=== PATIENT | female | born 1950 | race Caucasian/White ===

== ENCOUNTER → 2016-10-04 | Outpatient (CLI) | payer OTHER ==
--- NOTE | 2016-10-04 11:19 | MA ---
Screening Digital Mammogram With iCAD Analysis Clinical Indications: Routine screening. Maternal grandmother, a sister and multiple first cousins marie ve been diagnosed with breast cancer in their 40s and 50s. The patient has had ovarian cancer and is BRCA1 and 2 negative. Technique: Standard cephalocaudal and mediolateral oblique projections are obtained. The examination is processed by the iCAD computer-aided detection system. Comparison: June 2015, June 2014, June 2013, March 2012, December 2010, November 2009, October 9. Breast density: Type C; Heterogeneously dense. Findings: CAD was reviewed. There are no masses, suspicious calcifications or other signs of malignan cy. There has been no significant change in the appearance of either breast. Impression: Negative mammogram. BI-RADS 1. Recommendation: Routine screening in one year, as long as physical examination is benign, in this pat ient with heterogeneously dense breast parenchyma. Notation: Given the patient's breast density as well as family history, consideration could be given to tomosynthesis technique for next mammographic screening study. Count Includes [facility] will send a result letter to the patient. Dense breast parenchyma diminishes mammographic sensitivity. Negative mammography should not preclude additional workup of a clinically suspicious finding. The patient's information is entered into a reminder system with a target due date for her next mammo gram.
== END ==
LOC: BMCIMAGING 10:02
DX: Z12.31 Encounter for screening mammogram for malignant neoplasm of breast (principal); Z80.3 Family history of malignant neoplasm of breast; Z85.43 Personal history of malignant neoplasm of ovary
CPT/HCPCS: G0202

== ENCOUNTER → 2017-10-06 | Outpatient (CLI) | payer OTHER | LOC: BMCIMAGING 12:46 | PROVIDERS: ATTEND Internal Medicine | DX: Z12.31 Encounter for screening mammogram for malignant neoplasm of breast (principal); Z80.3 Family history of malignant neoplasm of breast; Z85.43 Personal history of malignant neoplasm of ovary ==

== ENCOUNTER → 2017-10-27 | Outpatient (CLI) | payer OTHER | LOC: BMCIMAGING 11:14 | PROVIDERS: ATTEND Internal Medicine | DX: Z13.820 Encounter for screening for osteoporosis (principal) ==

== ENCOUNTER → 2018-02-02 | Outpatient (CLI) | payer OTHER | LOC: BMCIMAGING 12:52 | PROVIDERS: ATTEND Urology | DX: R39.15 Urgency of urination (principal); R35.0 Frequency of micturition; R32 Unspecified urinary incontinence ==

== ENCOUNTER → 2018-03-26 | Outpatient (CLI) | payer OTHER | LOC: BMCIMAGING 16:13 | PROVIDERS: ATTEND Internal Medicine | DX: M47.26 Other spondylosis with radiculopathy, lumbar region (principal); Z87.828 Personal history of other (healed) physical injury and trauma ==

== ENCOUNTER → 2018-11-14 | Outpatient (CLI) | payer OTHER | LOC: FIMAGING 11:26 | PROVIDERS: ATTEND Internal Medicine | DX: Z12.31 Encounter for screening mammogram for malignant neoplasm of breast (principal) ==